=== PATIENT | male | born 1955 | race Caucasian/White ===

== ENCOUNTER 2020-05-17 10:53 | Emergency (ER) | payer BC ==
--- NOTE | 2020-05-17 11:18 | EDM.PDOC ---
ED HPI GENERAL MEDICAL PROBLEM - General Chief Complaint: Lower Extremity Injury/Pain Stated Complaint: BLOOD CLOT IN RIGHT LEG Time Seen by Provider: 05/17/20 10:56 - History of Present Illness INITIAL COMMENTS - FREE TEXT/NARRATIVE: History of present illness: Patient presents with calf pain and a knot on his right calf that began overnight he is concerned that this is a blood clot on exam he has marketed varicose veins there is a reddened spot on the posterior calf that is tender for the patient he denies any trauma no fever chills nothing seems to make it better or worse Review of systems: As per history of present illness and below otherwise all systems reviewed and negative. Past medical history: As per history of present illness and as reviewed below otherwise noncontributory. Surgical history: As per history of present illness and as reviewed below otherwise noncontributory. Social history: No reported history of drug or alcohol abuse. Family history: As per history of present illness and as reviewed below otherwise noncontributory. Physical exam: HEENT: Atraumatic, normocephalic, pupils reactive, negative for conjunctival pallor or scleral icterus, mucous membranes moist, throat clear, neck supple, nontender, trachea midline. Lungs: Clear to auscultation, breath sounds equal bilaterally, chest nontender. Heart: S1S2, regular, negative for clicks, rubs, or JVD. Abdomen: Soft, nondistended, nontender. Negative for masses or hepatosplenomegaly. Negative for costovertebral tenderness. Pelvis: Stable nontender. Genitourinary: Deferred. Rectal: Deferred. Extremities: Atraumatic, negative for cords or calf pain. Neurovascular unremarkable. Extensive varicose veins good distal pulse motor and sensation there is a red tender spot in the posterior calf patient is concerned this is a blood clot. Looks more like superficial thrombophlebitis Neuro: Awake, alert, oriented. Cranial nerves II through XII unremarkable. Cerebellum unremarkable. Motor and sensory unremarkable throughout. Exam nonfocal. Diagnostics: [] Therapeutics: [] Impression: Thrombophlebitis [] Plan: We will obtain a Doppler ultrasound rule out DVT and then reassess the patient [] Definitive disposition and diagnosis as appropriate pending reevaluation and review of above. Right Leg Pain Score (Numeric/FACES): 4 - Related Data Allergies Allergy/AdvReac Type Severity Reaction Status Date / Time codeine Allergy Cannot Verified 05/17/20 11:10 Remember Home Meds: Home Meds Hydrocodone/Acetaminophen [Hydrocodone-Acetamin 10-325 mg] 1 tab PO ASDIRECTED 05/17/20 [History] Naproxen [Naprosyn] 500 mg PO Q12HR #20 tab 05/17/20 [Rx] Pramipexole [Mirapex] 1 tab PO DAILY 05/17/20 [History] Review of Systems - Review of Systems Review Of Systems: See Below ED EXAM, GENERAL - Physical Exam Exam: See Below Course - Vital Signs Text/Narrative:: The Doppler of the right lower extremities negative for DVT patient be discharged home on naproxen follow-up with primary care diagnosis is thrombophlebitis Last Recorded V/S: Last Vital Signs Temp 36.4 C 05/17/20 11:12 Pulse 71 05/17/20 11:12 Resp 16 05/17/20 11:12 BP 127/60 05/17/20 11:12 Pulse Ox 97 05/17/20 11:12 Departure - Departure Time of Disposition: 12:01 Disposition: Home, Self-Care 01 Clinical Impression: Thrombophlebitis - Discharge Information *PRESCRIPTION DRUG MONITORING PROGRAM REVIEWED*: Not Applicable *COPY OF PRESCRIPTION DRUG MONITORING REPORT IN PATIENT MARILEE: Not Applicable Prescriptions: Naproxen [Naprosyn] 500 mg PO Q12HR #20 tab Referrals: Montana Vega MD [Primary Care Provider] - Forms: ED Department Discharge Additional Instructions: The following information is given to patients seen in the emergency department who are being discharged to home. This information is to outline your options for follow-up care. We provide all patients seen in our emergency department with a follow-up referral. The need for follow-up, as well as the timing and circumstances, are variable depending upon the specifics of your emergency department visit. If you don't have a primary care physician on staff, we will provide you with a referral. We always advise you to contact your personal physician following an emergency department visit to inform them of the circumstance of the visit and for follow-up with them and/or the need for any referrals to a consulting specialist. The emergency department will also refer you to a specialist when appropriate. This referral assures that you have the opportunity for follow-up care with a specialist. All of these measure are taken in an effort to provide you with optimal care, which includes your follow-up. Under all circumstances we always encourage you to contact your private physician who remains a resource for coordinating your care. When calling for follow-up care, please make the office aware that this follow-up is from your recent emergency room visit. If for any reason you are refused follow-up, please contact the [facility] Emergency Department at and asked to speak to the emergency department charge nurse. [facility] - Primary [facility] [address] [place] [id number] [address] [id number] Sepsis Event Note (ED) - Focused Exam Vital Signs: Vital Signs Temp Pulse Resp BP Pulse Ox 05/17/20 11:12 36.4 C 71 16 127/60 97
--- NOTE | 2020-05-17 11:57 | US ---
Right lower extremity deep venous ultrasound: Duplex and color Doppler evaluation was obtained of the right common femoral, superficial femoral, popliteal, posterior tibial and anterior tibial veins. Findings: Normal compression and Doppler blood flow are seen. Impression: 1. No evidence of deep venous thrombosis within the right lower extremity. Diagnostic code #1 This report was dictated in MDT
== END 2020-05-17 12:12 | disposition home or self-care (01) ==
LOC: MW.ED 10:53
DX: I80.3 Phlebitis and thrombophlebitis of lower extremities, unspecified (principal); Z88.5 Allergy status to narcotic agent
CPT/HCPCS: 93971-26-RT; 93971-RT; 99283; 99283-25

== ENCOUNTER 2022-07-20 15:43 | Emergency (ER) | payer BC ==
[2022-07-20] MEDS ORDERED: Sodium Chloride 0.9% 10 ML Syringe FLUSH PRN (16:08)
[2022-07-20] MEDS ORDERED: Sodium Chloride 0.9% 2.5 ML Syringe FLUSH PRN (16:08)
[2022-07-20] MEDS ORDERED: Sodium Chloride 0.9% 1,000 ML IV ONE (16:13)
[2022-07-20] MEDS ORDERED: Acetaminophen 325 MG Tab PO ONE (16:48)
[2022-07-20 17:00] LABS: CARBON DIOXIDE,CO2 29.5 mmol/L (21.0-32.0); POTASSIUM,K 3.7 mmol/L (3.5-5.1)
== END 2022-07-20 18:38 | disposition home or self-care (01) ==
LOC: MW.ED 15:43
DX: R00.2 Palpitations (principal); R51.9 Headache, unspecified; F17.210 Nicotine dependence, cigarettes, uncomplicated; Z88.5 Allergy status to narcotic agent; Z79.899 Other long term (current) drug therapy
CPT/HCPCS: 36415; 80053; 84484; 85025; 93005; 96360; 99285; A9270; J3490; J7030